=== PATIENT | male | born 1985 ===

== ENCOUNTER 2020-12-11 15:18 | Emergency (ER) | payer OTHER ==
[~2020-12-11] VITALS: Ht 175.3 cm; Wt 68.9 kg
[2020-12-11] MEDS ORDERED: OMEPRAZOLE-BIC1 EACH PO (15:30)
== END 2020-12-11 16:31 | disposition home or self-care (01) ==
LOC: ER 15:18
DX: R10.11 Right upper quadrant pain (principal)

== ENCOUNTER 2021-12-20 16:49 | Emergency (ER) | payer OTHER ==
[~2021-12-20] VITALS: Ht 175.3 cm; Wt 65.8 kg
[~2021-12-20 16:49] MED LIST: OMEPRAZOLE-BIC1 EACH PO
[2021-12-20] MEDS ORDERED: DICLOFENAC SODI75 MG PO (19:30)
== END 2021-12-20 19:47 | disposition home or self-care (01) ==
LOC: ER 16:49
DX: R10.32 Left lower quadrant pain (principal)